=== PATIENT | female | born 1950 | race Caucasian/White ===

== ENCOUNTER 2017-06-18 11:23 | Observation (INO) | payer MEDICARE, OTHER, SELFPAY ==
[2017-06-18] VITALS (13 sets, daily range): BP systolic 129–144; BP diastolic 56–83; PULSE 69–111; RESP 16–28; TEMP 36.2–36.9; O2SAT 80–97; BMI 15.2; BMI 14.9
--- NOTE | 2017-06-18 11:32 | XR_ITS ---
XR chest portable HISTORY: ITS.REASON: Shortness of air ORDERING PHYSICIAN: Pedro Hollis MD PATIENT AGE: 66 years COMPARISON: None available FINDINGS: The cardiomediastinal silhouette and pulmonary vascularity are within normal limits. There is hyperinflation with hyperlucency of upper lobes consistent with COPD. No lobar consolidation or collapse. There are multiple bilateral rib fractures. IMPRESSION: COPD, no acute finding
--- NOTE | 2017-06-18 11:57 | HMH.EDAMS ---
ED Disposition Clinical Impression: COPD exacerbation, Respiratory failure, DNR (do not resuscitate) Disposition: Still a Patient Condition on Discharge: Fair - Critical Care Critical Care Time: No Attestation: On , the high probability of a clinically significant, sudden or life threatening deterioration of the following system(s) required my full and direct attention, intervention and personal management. The time I documented below is in addition to time spent performing reported procedures but includes the following listed in this critical care notation. Medical Decision Making - Medical Records Medical records reviewed: Yes: I reviewed the patient's medical records. MR Comment: I reviewed her [place] and long-term records. Vital Signs: 06/18/17 11:24 06/18/17 13:04 Temperature 97.5 F L 97.1 F L Temperature Source Oral Oral Pulse Rate [Right Brachial] 107 H 103 H Respiratory Rate 18 24 Blood Pressure [Right Arm] 136/83 144/71 Blood Pressure Mean [Right Arm] 100 95 Blood Pressure Source [Right Arm] Automatic Cuff Automatic Cuff Blood Pressure Position [Right Arm] Sitting Supine 02 Sat by Pulse Oximetry 80 L 93 L Oxygen Delivery Method Nasal Cannula Nasal Cannula Oxygen Flow Rate (LPM) 4 4 - Lab Data Lab results reviewed: Yes: I reviewed the patient's lab results. Lab Results 06/18/17 11:34: WBC 20.4 H*, RBC 4.35, Hgb 13.2, Hct 42.1, MCV 96.8, MCH 30.3, MCHC 31.3 L, RDW 12.7, Plt Count 219, MPV 8.5, Neut % (Auto) 90.8 H, Lymph % (Auto) 3.0 L, [place] % (Auto) 5.6, Eos % (Auto) 0.4, Baso % (Auto) 0.2, Neut # (Auto) 18.5 H, Lymph # (Auto) 0.6 L, [place] # (Auto) 1.1 H, Eos # (Auto) 0.1, Baso # (Auto) 0.0, Total Counted 100, Neutrophils % (Manual) 97 H, Lymphocytes % (Manual) 2 L, Monocytes % (Manual) 1 L, Platelet Estimate Normal, RBC Morphology Normal 06/18/17 11:34: Sodium 140, Potassium 4.8, Chloride 99, Carbon Dioxide 40 H, Anion Gap 5.8, BUN 22 H, Creatinine 0.67, Estimated Creat Clear 31, Estimated GFR 88, Est GFR ( Amer) 107, Glucose 105, Calcium 9.8, Total Bilirubin 0.8, AST 55 H, ALT 258 H, Alkaline Phosphatase 82, Total Protein 7.5, Albumin 3.4, Globulin 4.1 H, Albumin/Globulin Ratio 0.8 L 06/18/17 11:34: Lactic Acid 1.9 06/18/17 11:34: B-Natriuretic Peptide 37 06/18/17 11:34: Total Creatine Kinase 20 L, CK-MB (CK-2) 1.2, CK-MB (CK-2) Rel Index 6.0 H, Troponin I < 0.02 06/18/17 11:45: Specimen Source Right radial, O2 % 30%, ABG pH 7.38, ABG pCO2 60.9 H, ABG pO2 59.0 L, ABG HCO3 35.0 H, ABG Total CO2 36.8 H, ABG O2 Saturation 91, ABG Base Excess 9.8 H, Vinnie Test Acceptable 06/18/17 12:28: Urine Color Yellow, Urine Appearance Sl cloudy, Urine pH 6.0, Ur Specific [place] 1.025, Urine Protein Negative, Urine Glucose (UA) Negative, Urine Ketones Trace, Urine Blood Trace-i, Urine Nitrate Negative, Urine Bilirubin Negative, Urine Urobilinogen 0.2, Ur Leukocyte Esterase 1+ A, Urine RBC Occasional, Urine WBC 5-10, Ur Squamous Epith Cells 20-50, Ur Transition Epith Cell Occ, Urine Bacteria 2+ Result diagrams: 06/18/17 11:34 06/18/17 11:34 Orders (Tests/Meds): ED MEDICATIONS Discontinued Medications Generic Name Dose Route Start Last Admin Trade Name Freq PRN Reason Stop Dose Admin Albuterol/Ipratropium 3 ml 06/18/17 11:35 Duoneb 3ml Neb IH 06/18/17 11:36 ONCE ONE ORDERS Category Date Time Status Blood Culture Stat Micro 06/18/17 11:34 Received Sputum Culture & Gram Stain Stat Micro 06/18/17 12:10 Received Urine Culture Routine Micro 06/18/17 12:28 Received - Radiology Data #1 Image(s): Chest Preliminary Findings: Abnormal (copd no acute. ) - ECG Data Tracing #1 Sinus tachycardia 103 right atrial enlargement and right axis deviation. Baseline artifact no acute findings. ECG initial impression date: 06/18/17 ECG initial impression time: 12:04 - Brian Inquiry Pt receiving controlled substance: No Brian was queried for this patient: No Medical
[2017-06-18 12:00] LABS: Basophils % 0.2 % (0.1-2.0); Eosinophils # 0.1 K/mm3 (0.0-0.4); Eosinophils % 0.4 % (0.1-12.0); Hematocrit 42.1 % (37.0-47.0); Hemoglobin 13.2 g/dL (12.2-16.2); Lymphocytes # 0.6 K/mm3 (0.7-4.5); Mean Corpuscular HGB Conc 31.3 g/dL (31.8-35.4); Mean Corpuscular Hemoglobin 30.3 pg (27.0-31.2); Mean Corpuscular Volume 96.8 fl (81-99); Mean Platelet Volume 8.5 fl (7.4-10.4); Monocytes # 1.1 K/mm3 (0.1-1.0); Monocytes % 5.6 % (1.7-9.3); Neutrophils # 18.5 K/mm3 (1.8-7.8); Neutrophils % 90.8 % (37.0-80.0); Platelet Count 219 K/mm3 (142-424); Red Blood Count 4.35 M/mm3 (4.20-5.40); Red Cell Distribution Width 12.7 % (11.5-17.5); White Blood Count 20.4 K/mm3 (4.8-10.8)
--- NOTE | 2017-06-18 12:00 | ED_ITS ---
ED Disposition Clinical Impression: COPD exacerbation, Respiratory failure, DNR (do not resuscitate) Disposition: Still a Patient Condition on Discharge: Fair - Critical Care Critical Care Time: No Attestation: On , the high probability of a clinically significant, sudden or life threatening deterioration of the following system(s) required my full and direct attention, intervention and personal management. The time I documented below is in addition to time spent performing reported procedures but includes the following listed in this critical care notation. Medical Decision Making - Medical Records Medical records reviewed: Yes: I reviewed the patient's medical records. MR Comment: I reviewed her [place] [facility]. Vital Signs: 06/18/17 11:24 06/18/17 13:04 Temperature 97.5 F L 97.1 F L Temperature Source Oral Oral Pulse Rate [Right Brachial] 107 H 103 H Respiratory Rate 18 24 Blood Pressure [Right Arm] 136/83 144/71 Blood Pressure Mean [Right Arm] 100 95 Blood Pressure Source [Right Arm] Automatic Cuff Automatic Cuff Blood Pressure Position [Right Arm] Sitting Supine 02 Sat by Pulse Oximetry 80 L 93 L Oxygen Delivery Method Nasal Cannula Nasal Cannula Oxygen Flow Rate (LPM) 4 4 - Lab Data Lab results reviewed: Yes: I reviewed the patient's lab results. Lab Results 06/18/17 11:34: WBC 20.4 H*, RBC 4.35, Hgb 13.2, Hct 42.1, MCV 96.8, MCH 30.3, MCHC 31.3 L, RDW 12.7, Plt Count 219, MPV 8.5, Neut % (Auto) 90.8 H, Lymph % ( Auto) 3.0 L, [place] % (Auto) 5.6, Eos % (Auto) 0.4, Baso % (Auto) 0.2, Neut # ( Auto) 18.5 H, Lymph # (Auto) 0.6 L, [place] # (Auto) 1.1 H, Eos # (Auto) 0.1, Baso # (Auto) 0.0, Total Counted 100, Neutrophils % (Manual) 97 H, Lymphocytes % ( Manual) 2 L, Monocytes % (Manual) 1 L, Platelet Estimate Normal, RBC Morphology Normal 06/18/17 11:34: Sodium 140, Potassium 4.8, Chloride 99, Carbon Dioxide 40 H, Anion Gap 5.8, BUN 22 H, Creatinine 0.67, Estimated Creat Clear 31, Estimated GFR 88, Est GFR ( Amer) 107, Glucose 105, Calcium 9.8, Total Bilirubin 0.8, AST 55 H, ALT 258 H, Alkaline Phosphatase 82, Total Protein 7.5, Albumin 3.4, Globulin 4.1 H, Albumin/Globulin Ratio 0.8 L 06/18/17 11:34: Lactic Acid 1.9 06/18/17 11:34: B-Natriuretic Peptide 37 06/18/17 11:34: Total Creatine Kinase 20 L, CK-MB (CK-2) 1.2, CK-MB (CK-2) Rel Index 6.0 H, Troponin I < 0.02 06/18/17 11:45: Specimen Source Right radial, O2 % 30%, ABG pH 7.38, ABG pCO2 60.9 H, ABG pO2 59.0 L, ABG HCO3 35.0 H, ABG Total CO2 36.8 H, ABG O2 Saturation 91, ABG Base Excess 9.8 H, Vinnie Test Acceptable 06/18/17 12:28: Urine Color Yellow, Urine Appearance Sl cloudy, Urine pH 6.0, Ur Specific [place] 1.025, Urine Protein Negative, Urine Glucose (UA) Negative, Urine Ketones Trace, Urine Blood Trace-i, Urine Nitrate Negative, Urine Bilirubin Negative, Urine Urobilinogen 0.2, Ur Leukocyte Esterase 1+ A, Urine RBC Occasional, Urine WBC 5-10, Ur Squamous Epith Cells 20-50, Ur Transition Epith Cell Occ, Urine Bacteria 2+ Result diagrams: 06/18/17 11:34 06/18/17 11:34 Orders (Tests/Meds): ED MEDICATIONS Discontinued Medications Generic Name Dose Route Start Last Admin Trade Name Freq PRN Reason Stop Dose Admin Albuterol/Ipratropium 3 ml 06/18/17 11:35 Duoneb 3ml Neb IH 06/18/17 11:36 ONCE ONE ORDERS Category Date Time Status Blood Culture Stat Micro 06/18/17 11:34 Received
[2017-06-18 12:04] LABS: MANUAL DIFFERENTIAL MANUAL DIFFERENTIAL (MANUAL DIFF)
[2017-06-18 12:13] LABS: Lactic Acid 1.9 mmol/L (0.4-2.0)
[2017-06-18 12:23] LABS: Alanine Aminotransferase 258 U/L (12-78); Albumin Level 3.4 gm/dL (3.4-5.0); Albumin/Globulin Ratio 0.8 (1.1-1.8); Alkaline Phosphatase 82 U/L (46-116); Anion Gap 5.8 mEq/L (5-15); Aspartate Amino Transferase 55 U/L (15-37); Bilirubin,Total 0.8 mg/dL (0.2-1.0); Blood Urea Nitrogen 22 mg/dL (7-18); Calcium 9.8 mg/dL (8.5-10.1); Chloride 99 mmol/L (98-107); Creatine Kinase 20 U/L (26-192); Creatine Kinase MB 1.2 mg/ml (0.0-3.6); Creatinine Clearance Estimated 31 mL/min (0-300); Creatinine,Serum 0.67 mg/dL (0.55-1.02); Estimated Glomerular Filt Rate 88 ml/min (>60); GFR (African American) 107 ML/MIN (>60); Globulin 4.1 gm/dl (1.3-3.2); Glucose 105 mg/dL (74-106); Potassium 4.8 mmoL/L (3.5-5.1); Sodium 140 mmol/L (136-145); Total Protein,Serum 7.5 gm/dL (6.4-8.2); Troponin I < 0.02 ng/ml (0.00-0.06)
[2017-06-18 12:25] LABS: Carbon Dioxide 40 mmol/L (21.0-32.0)
[2017-06-18 12:40] LABS: Microscopic, Urine URINE MICROSCOPIC (MICROSCOPIC)
[2017-06-18 12:44] LABS: Appearance,Urine SL CLOUDY (Clear); Bilirubin,Urine Negative (Negative); Blood, Urine TRACE-I (Negative); Color,Urine YELLOW (Yellow); Glucose,Urine (UA) Negative (Negative); Ketones,Urine TRACE (Negative); Leukocyte Esterase,Urine 1+ (Negative); Nitrate,Urine Negative (Negative); Protein,Urine Negative (Negative); Specific Gravity, Urine 1.025 (1.005-1.030); Urobilinogen,Urine 0.2 EU/dl (0.2)
[2017-06-18 12:46] LABS: ABG Base Excess 9.8 mmol/L (-2.4-2.3); ABG Oxygen Saturation 91 % (90-100); ABG PH 7.38 mmol/L (7.35-7.45); ABG TCO2 36.8 mmhg (23-27)
[2017-06-18 12:51] LABS: ABG PCO2 60.9 mmhg (35.0-45.0); Allen's Test Acceptable; Oxygen 30% %; Source Right Radial
[2017-06-18 12:53] LABS: RBC,Urine Occasional #/hpf (0-3)
[2017-06-18 12:54] LABS: Bacteria,Urine 2+ /lpf; Squamous Epithelial Cell,Urine 20-50 #/hpf (0-5); Transitional Epi Cells,Urine OCC #/lpf (0-3)
--- NOTE | 2017-06-18 12:57 | PC.NURSE ---
dr kelly ty
[2017-06-18 13:01] LABS: Lymphocytes % 2 % (10-50); Monocytes % 1 % (2-9); Neutrophils % 97 % (42-76); Platelet Estimate Normal; RBC Morphology Normal; Total Cells Counted 100
--- NOTE | 2017-06-18 14:34 | XR_ITS ---
XR chest portable HISTORY: Respiratory failure ITS.REASON: rsp failure ORDERING PHYSICIAN: Yfn Martínez MD PATIENT AGE: 66 years COMPARISON: Same day FINDINGS: There is overlying arm artifact. COPD with hyperinflation once again noted. There is some increased density over the right lower lung zone which is felt to be due to soft tissue attenuation somewhat similar on the left side as well. There are multiple old bilateral rib fractures. IMPRESSION: Artifact, COPD, no definite acute finding
--- NOTE | 2017-06-18 15:22 | P.CONPHA_ITS ---
[facility] Pharm[facility] VTE Monitoring - Patient Demographics Admission date: 06/18/17 Report Date: 06/18/17 Time: 15:21 Allergies/Adverse Reactions: Patient Allergies No Known Allergies Allergy (Verified 06/18/17 11:31) Height: 1.57 m Weight: 36.968 kg Patient Problems: Current Active Problems COPD exacerbation (Acute) Respiratory failure (Acute) DNR (do not resuscitate) (Acute) - VTE Risk Labs: VTE Related Lab Results Hgb 13.2 g/dL (12.2-16.2) 06/18/17 11:34 Hct 42.1 % (37.0-47.0) 06/18/17 11:34 Plt Count 219 K/mm3 (142-424) 06/18/17 11:34 BUN 22 mg/dL (7-18) H 06/18/17 11:34 Creatinine 0.67 mg/dL (0.55-1.02) 06/18/17 11:34 Estimated Creat Clear 31 mL/min (0-300) 06/18/17 11:34 Was VTE Risk Assessment Performed: Yes VTE Score: 5 VTE Risk Level: Low Risk Clinical Trial Participant: No - Prophylaxis VTE Prophylaxis Ordered?: Yes Types of VTE Prophylaxis: TEDS Knee High Pharmacologic Type: Enoxaparin
[2017-06-19] VITALS: PULSE 90
--- NOTE | 2017-06-19 02:45 | PC.NURSE ---
no changes noted from previous assessment, pt alert to person, and time, pt confused at times and speech rambles, family states this has been occurring more frequently than in the past, pt denies pain at this time, breath sounds are diminished with wheezes noted on auscultation, at about 2030 pt O2 dropped to mid 70's on 2L NC for a brief moment, pt was placed on 3L NC and recovered well back to mid 90's, after sustaining O2 sats in the mid 90's O2 was dropped back to 2L and pt has maintained O2 sats at or above 90 since, upon admission pt pulled on BiPap and fought it, BiPap is currently not in use but in room on standby if needed, bowel sounds are active, correa is patent, anchored and draining clear yellow urine, pt has rested well, no acute distress noted at this time, safety measures in place, call light in reach, family at bedside, will continue to monitor.
[2017-06-19 04:00] VITALS: BP 131/68; PULSE 100; PULSE 82; RESP 18; TEMP 36.4; O2SAT 93
--- NOTE | 2017-06-19 07:05 | PC.NURSE ---
Addendum entered by Peg Kidd RN 06/19/17 07:11: Report given to Richa Awad RN Original Note: Report given to Angelica Granados RN
--- NOTE | 2017-06-19 07:11 | PC.NURSE ---
REPORT GIVEN TO Linda GONZALEZ W/C
[2017-06-19 07:17] LABS: Eosinophils # 0.1 K/mm3 (0.0-0.4); Eosinophils % 0.2 % (0.1-12.0); Lymphocytes # 0.4 K/mm3 (0.7-4.5); Lymphocytes % 1.9 K/mm3 (10-50); Mean Corpuscular HGB Conc 31.5 g/dL (31.8-35.4); Mean Corpuscular Hemoglobin 30.4 pg (27.0-31.2); Mean Corpuscular Volume 96.6 fl (81-99); Mean Platelet Volume 9.5 fl (7.4-10.4); Monocytes # 0.6 K/mm3 (0.1-1.0); Monocytes % 2.5 % (1.7-9.3); Neutrophils % 95.3 % (37.0-80.0); Platelet Count 205 K/mm3 (142-424); Red Blood Count 3.93 M/mm3 (4.20-5.40); Red Cell Distribution Width 12.6 % (11.5-17.5)
[2017-06-19 07:18] LABS: MANUAL DIFFERENTIAL MANUAL DIFFERENTIAL (MANUAL DIFF)
[2017-06-19 08:00] VITALS: PULSE 90; O2SAT 96
[2017-06-19 08:01] VITALS: BP 122/41; PULSE 104; RESP 18; TEMP 36.6; O2SAT 92
[2017-06-19 08:26] LABS: Anion Gap 6.6 mEq/L (5-15); Blood Urea Nitrogen 27 mg/dL (7-18); Carbon Dioxide 37 mmol/L (21.0-32.0); Chloride 104 mmol/L (98-107); Creatinine Clearance Estimated 33 mL/min (0-300); Creatinine,Serum 0.67 mg/dL (0.55-1.02); Estimated Glomerular Filt Rate 88 ml/min (>60); GFR (African American) 107 ML/MIN (>60); Glucose 141 mg/dL (74-106); Magnesium 1.8 mg/dL (1.4-2.2); Potassium 4.6 mmoL/L (3.5-5.1); Sodium 143 mmol/L (136-145)
--- NOTE | 2017-06-19 09:11 | HMH.HPDC ---
General - General Admission date: 06/18/17 Discharge date: 06/19/17 *Admission Date: 06/18/17 *Chief complaint: sob *History of present illness: this wf who was recently admitted at [facility] after stay in [facility] had an acute change in mental status and was sent to [facility] for eval and was noted to be in resp distress with excerbation of copd and was noted to have co2 retention and will need bpap and steroids - pt has sig copd with abn abg which showed co2 retention and will need bpap -66 years old white female smoker with end-stage COPD. The patient was recently discharged from [place] on June 11, 2017 after an admission for COPD exacerbation and respiratory failure. She was sent to [facility] she was noted this morning to be lethargic and hypoxic at 71% on 2 L of nasal. The patient mentations and oxygenation improved on 5 L of nasal cannula. She is alert and oriented to day and person. She denies having chest pain nausea or vomiting fever or chills. [facility] History I have reviewed the patient's past medical history: Yes Medical History: Denies:: Cancer, Diabetes Mellitus Type 1, Diabetes Mellitus Type 2, MRSA Other Medical History: Reports: Arthritis Other Surgeries: Yes: No Previous Surgery Amputation: No - *Social History Educational Level: Completed High School Smoking Status: Current every day smoker Tobacco Type: cigarettes #Yrs smoked (if former smoker): 50 Alcohol Intake: never Occupational Status: disabled Housing: [facility] Household Members: other - Psychiatric History Expresses thoughts of harming self/others: None Suicide Plan Description: No Plan *Family Hx:: Anemia, Cancer, Coronary Artery Disease, Heart Attack, Hyperlipidemia, Hypertension, Stroke Review of Systems - Review of Systems Review of systems:: pertinent systems reviewed and negative unless documented below - Constitutional Reports weakness, Denies fever(s) - Eyes Denies change in vision - ENT Reports dry mouth - *Cardiovascular Reports chest pain with activity, Reports shortness of breath - *Respiratory Reports chest congestion, Reports cough, Reports shortness of breath, Reports shortness of breath with activity - *Gastrointestinal Denies nausea - *Musculoskeletal Denies joint pain - Integumentary/Breasts Denies rash - *Neurologic Denies dizziness Exam Vital signs and Labs for Last 24 Hours: Temp Pulse Resp BP Pulse Ox 97.9 F 104 H 18 122/41 92 L 06/19/17 08:01 02/23/18 08:01 06/19/17 08:01 06/19/17 08:01 06/19/17 08:01 Laboratory Results - last 24 hr 06/19/17 06:30: WBC 22.0 H*, RBC 3.93 L, Hgb 12.0 L, Hct 38.0, MCV 96.6, MCH 30.4, MCHC 31.5 L, RDW 12.6, Plt Count 205, MPV 9.5, Neut % (Auto) 95.3 H, Lymph % (Auto) 1.9 L, [place] % (Auto) 2.5, Eos % (Auto) 0.2, Baso % (Auto) 0.0 L, Neut # (Auto) 21.0 H, Lymph # (Auto) 0.4 L, [place] # (Auto) 0.6, Eos # (Auto) 0.1, Baso # (Auto) 0.0 06/19/17 06:30: Sodium 143, Potassium 4.6, Chloride 104, Carbon Dioxide 37 H, Anion Gap 6.6, BUN 27 H, Creatinine 0.67, Estimated Creat Clear 33, Estimated GFR 88, Est GFR ( Amer) 107, Glucose 141 H D, Magnesium 1.8 I & O for Last 24 hours: Intake & Output 06/16/17 06/17/17 06/18/17 06/19/17 11:59 11:59 11:59 11:59 Intake Total 1376 / 1376 Output Total 1300 / 1300 Balance 76 / 76 Weight 81 lb 8 oz - Constitutional no acute distress, cachectic, chronically ill appearing - *Routine HEENT Exam Head: Present: normocephalic Eye: Present: EOMI, PERRL ENT: Present: mucous membranes dry - *Routine Neck Exam Absent: JVD - *Routine Respiratory Exam Present: accessory muscle use, prolonged expiratory phase, wheezes. Absent: respiratory distress - *Routine Cardiovascular Exam Present: RRR, murmur, S3 - *Routine Abdominal Exam Present: soft. Absent: tenderness, distended, bruit - *Routine Extremities Exam Present: cyanosis - *Routine Skin Exam Present: inta
--- NOTE | 2017-06-19 09:14 | P.HPDS_ITS ---
General - General Admission date: 06/18/17 Discharge date: 06/19/17 *Admission Date: 06/18/17 *Chief complaint: sob *History of present illness: this wf who was recently admitted at [facility] after stay in [facility] had an acute change in mental status and was sent to [facility] for eval and was noted to be in resp distress with excerbation of copd and was noted to have co2 retention and will need bpap and steroids - pt has sig copd with abn abg which showed co2 retention and will need bpap -66 years old white female smoker with end-stage COPD. The patient was recently discharged from [place] on June 11, 2017 after an admission for COPD exacerbation and respiratory failure. She was sent to [facility] she was noted this morning to be lethargic and hypoxic at 71% on 2 L of nasal. The patient mentations and oxygenation improved on 5 L of nasal cannula. She is alert and oriented to day and person. She denies having chest pain nausea or vomiting fever or chills. [facility] History I have reviewed the patient's past medical history: Yes Medical History: Denies:: Cancer, Diabetes Mellitus Type 1, Diabetes Mellitus Type 2, MRSA Other Medical History: Reports: Arthritis Other Surgeries: Yes: No Previous Surgery Amputation: No - *Social History Educational Level: Completed High School Smoking Status: Current every day smoker Tobacco Type: cigarettes #Yrs smoked (if former smoker): 50 Alcohol Intake: never Occupational Status: disabled Housing: half-way Household Members: other - Psychiatric History Expresses thoughts of harming self/others: None Suicide Plan Description: No Plan *Family Hx:: Anemia, Cancer, Coronary Artery Disease, Heart Attack, Hyperlipidemia, Hypertension, Stroke Review of Systems - Review of Systems Review of systems:: pertinent systems reviewed and negative unless documented below - Constitutional Reports weakness, Denies fever(s) - Eyes Denies change in vision - ENT Reports dry mouth - *Cardiovascular Reports chest pain with activity, Reports shortness of breath - *Respiratory Reports chest congestion, Reports cough, Reports shortness of breath, Reports shortness of breath with activity - *Gastrointestinal Denies nausea - *Musculoskeletal Denies joint pain - Integumentary/Breasts Denies rash - *Neurologic Denies dizziness Exam Vital signs and Labs for Last 24 Hours: Temp Pulse Resp BP Pulse Ox 97.9 F 104 H 18 122/41 92 L 06/19/17 08:01 06/19/17 08:01 06/19/17 08:01 06/19/17 08:01 06/19/17 08:01 Laboratory Results - last 24 hr 06/19/17 06:30: WBC 22.0 H*, RBC 3.93 L, Hgb 12.0 L, Hct 38.0, MCV 96.6, MCH 30.4, MCHC 31.5 L, RDW 12.6, Plt Count 205, MPV 9.5, Neut % (Auto) 95.3 H, Lymph % (Auto) 1.9 L, [place] % (Auto) 2.5, Eos % (Auto) 0.2, Baso % (Auto) 0.0 L, Neut # (Auto) 21.0 H, Lymph # (Auto) 0.4 L, [place] # (Auto) 0.6, Eos # (Auto) 0.1 , Baso # (Auto) 0.0 06/19/17 06:30: Sodium 143, Potassium 4.6, Chloride 104, Carbon Dioxide 37 H, Anion Gap 6.6, BUN 27 H, Creatinine 0.67, Estimated Creat Clear 33, Estimated GFR 88, Est GFR ( Amer) 107, Glucose 141 H D, Magnesium 1.8 I & O for Last 24 hours: Intake & Output 06/16/17 06/17/17 06/18/17 06/19/17 11:59 11:59 11:59 11:59 Intake Total 1376 / 1376 Output Total 1300 / 1300 Balance 76 / 76 Weight 81 lb 8 oz - Constitutional no acute distress, cachectic, chronica
[2017-06-19 09:53] LABS: Lymphocytes % 2 % (10-50); Monocytes % 1 % (2-9); Neutrophils % 96 % (42-76); Total Cells Counted 100
[2017-06-19 09:54] LABS: Hypochromasia 3+
[2017-06-19 09:55] LABS: Platelet Estimate Normal
--- NOTE | 2017-06-19 11:52 | PC.NURSE ---
CALLED [facility] FOR TRANSPORT PER FAMILY ETA AFTER YUE UMANZOR DROP OFF
[2017-06-19 12:00] VITALS: BP 122/63; PULSE 100; RESP 16; TEMP 36.7; O2SAT 94
--- NOTE | 2017-06-19 13:20 | SW/DCPLANNER ---
Received order for patient to have bi-pap machine when returning to [facility]. Patient is expected to discharge back to [facility] today....at first patient information was faxed to [facility]...Dimitri made contact with [facility] due to marie of bi-pap due to being in skilled facility. Stephenie from [facility] called me back and stated that they generally use a different DME company. Patient information along with bi-pap order has been faxed to [facility] for them to set up DME through their company. Patient is discharging back to [facility] this afternoon.
[2017-06-19 16:00] VITALS: BP 132/51; PULSE 108; RESP 16; TEMP 36.9; O2SAT 97
--- NOTE | 2017-06-19 16:00 | PC.NURSE ---
PATIENT IS STILL WAITING FOR AMBULANCE RIDE TO [facility]. WE HAVE CALLED [facility] SEVERAL TIMES FOR UPDATE. THE MOST RECENT TIME AT 1550 WE WERE TOLD THEY JUST ENTERED THE COUNTY FROM TAKING A URGENT RUN TO AND WOULD BE UP HERE SOON.
--- NOTE | 2017-06-19 16:05 | PC.NURSE ---
[facility] ON FLOOR TO CERTIFIED OPHTHALMIC ASSISTANT PATIENT
== END 2017-06-19 16:05 ==
LOC: ER 13:23 → 2ND 06-19 07:05
PROVIDERS: Admitting Provider Emergency Medicine; Emergency Provider Emergency Medicine; PCP Family Medicine; Visit Provider Emergency Medicine
DX: R06.09 Other forms of dyspnea (principal); J44.1 Chronic obstructive pulmonary disease with (acute) exacerbation; R64 Cachexia; Z68.1 Body mass index [BMI] 19.9 or less, adult; R62.7 Adult failure to thrive
CPT/HCPCS: 36415; 71045; 80048; 80053; 81001; 82550; 82553; 82803; 83605; 83735; 83880; 84484; 85007; 85025; 87040; 87070; 87077; 87086; 87205; 93005; 93041; 94640; 94660; 94760; 96365; 96366; 96372; 96374; 96375; 99285; G0378